=== PATIENT | female | born 1990 | race Caucasian/White ===

== ENCOUNTER 2023-05-24 06:39 | Observation (INO) | payer BC, SELFPAY ==
[2023-05-24] VITALS (22 sets, daily range): BP systolic 113–163; BP diastolic 63–116; PULSE 91–116; RESP 15–22; TEMP 35.9–37.7; O2SAT 94–100; BMI 32.8
--- NOTE | ~2023-05-24 | CT_ITS ---
EXAMINATION: CT abdomen pelvis w con INDICATION: Umbilical pain TECHNIQUE: Computed tomographic images of the abdomen and pelvis were obtained after the administrati on of 100 cc of Omnipaque 350 intravenous contrast. The dose-length product (DLP) was 726.36 mGy-cm. Automated exposure control and iterative reconstruction technique were employed. COMPARISON: None available FINDINGS: The lung bases are clear. The heart size is normal. The liver, spleen, pancreas, and adrena l glands are normal. There appear to be stones in the nondistended gallbladder. The kidneys are unrem arkable. No pathologically enlarged abdominal or pelvic lymph nodes are identified. No free intraperi toneal gas or evidence of bowel obstruction. The dilated appendix measures up to 10 mm. There is juan m atous stranding of the periappendiceal fat. No periappendiceal abscess or perforation are identified. There is moderate lumbar spondylosis at L5-S1. A tiny fat-containing umbilical hernia is noted. IMPRESSION: 1. Uncomplicated acute appendicitis. 2. Possible cholelithiasis. Reviewed, dictated and finalized at location A.
[2023-05-24 07:10] LABS: Add Urine Microscopic? NO; Appearance Urine Clear (Clear); Bilirubin Urine Negative (Negative); Blood Urine Negative (Negative); Color Urine Yellow (Yellow); Glucose Urine UA Negative (Negative); Ketones Urine Negative (Negative); Leukocyte Esterase Ur Negative LEU/UL (Negative); Nitrate Urine Negative (Negative); Protein Urine Negative (Negative); Specific Grav Ur 1.004 (1.001-1.035); Urobilinogen Urine 0.2 mg/dL (<2.0)
[2023-05-24 07:13] LABS: Basophils Absolute Auto 0.1 K/mm3 (0.0-0.1); Basophils Percent Auto 0.3 % (0.2-1.2); Eosinophils Percent Auto 0.1 % (0-4.4); Hematocrit 38.9 % (37.0-47.0); Hemoglobin 12.6 g/dL (12.0-15.0); Immature Granulocyte Absolute 0.07 K/mm3 (0.00-0.031); Immature Granulocyte Percent A 0.4 % (0-0.5); Lymphocytes Absolute Auto 2.08 K/mm3 (0.9-3.2); Lymphocytes Percent Auto 10.6 % (18.3-44.2); Mean Corpuscular HGB Conc 32.4 g/dl (32-36); Mean Corpuscular Hemoglobin 30.2 pg (26-34); Mean Corpuscular Volume 93.3 fl (80-100); Monocytes Absolute Auto 0.9 K/mm3 (0.1-0.6); Monocytes Percent Auto 4.7 % (2.6-8.5); Neutrophils Absolute Auto 16.5 K/mm3 (1.3-6.7); Neutrophils Percent Auto 83.9 % (45.5-73.1); Platelet Count Result 388 k/mm3 (150-375); Red Blood Count 4.17 M/mm3 (4.2-5.4); Red Cell Distribution Width 12.9 % (11.5-14.5); White Blood Count 19.6 K/mm3 (4.5-10.0)
[2023-05-24 07:18] LABS: Sodium 137 mmol/L (137-145)
[2023-05-24 07:24] LABS: Alanine Aminotransferase 59 U/L (6-35); Alkaline Phosphatase 114 U/L (38-126); Anion Gap 10 mmol/L (8-16); Aspartate Amino Transferase 39 U/L (14-36); Bilirubin,Total 0.6 mg/dL (0.2-1.3); Blood Urea Nitrogen 8 mg/dL (7-17); Calcium 9.7 mg/dL (8.4-10.2); Carbon Dioxide 24 mmol/L (22-30); Chloride 103 mmol/L (98-107); Estimated CRCL calculation 140 ml/min; Estimated Glomerular Filt Rate > 60; Glucose 124 mg/dL (65-110); Lipase 28 U/L (23-300)
--- NOTE | 2023-05-24 07:35 | ED.ABDPAIN ---
HPI - Abdominal Pain General Chief Complaint: Abdominal Pain Stated Complaint: abdominal pain Time Seen by Provider: 05/24/23 07:34 Source: patient Mode of arrival: ambulatory Limitations: no limitations History of Present Illness HPI narrative: 32 years old white female presented to the ED with the mid epigastric pain started 7 hours ago has been steady, dull aching, burning, she denies any fever chills nausea vomiting. No history of abdominal surgery, patient does not take medicine at home, does not smoke or drink or uses drugs, no history of acid reflux, last minutes were. 3 weeks ago. Patient denies any vaginal bleeding or discharge Related Data Allergies Allergy/AdvReac Type Severity Reaction Status Date / Time No Known Allergies Allergy Verified 05/24/23 07:51 Review of Systems Review of Systems: All systems reviewed & are unremarkable except as noted in HPI and below Exam Narrative: General appearance: Well-developed, well-nourished Skin: Normal color Head: Normocephalic, nontraumatic Eyes: Clear conjunctiva ENT: Oropharynx normal, ears normal, nose normal Neck: Supple, nontender Chest and respiratory: Airway patent, no respiratory distress, no accessory muscle use Heart: Regular rate/rhythm Abdomen: Soft, diffuse epigastric tenderness and right lower quadrant, no organomegaly, quiet bowel sounds Vascular: Normal peripheral pulses, normal capillary refill. Musculoskeletal: Normal range of motion, nontender back Neurologic: Alert and oriented ?3, ENFORCEMENT MANAGER is normal as tested, no gross motor deficit Course Reevaluation(s) Reevaluation #1: Almost pain-free after IV fluid, Dilaudid and Zofran. Date: 05/24/23 Time: 11:15 Consultations Consultation #1: chalo Date: 05/24/23 Time: 11:16 Vital Signs Vital signs: Vital Signs Temperature 36.6 C 05/24/23 06:41 Pulse Rate 116 H 05/24/23 06:41 Respiratory Rate 15 05/24/23 06:41 Blood Pressure 144/92 H 05/24/23 06:41 Pulse Oximetry 100 05/24/23 06:41 Oxygen Delivery Room Air 05/24/23 06:41 Temperature 36.6 C 05/24/23 06:41 Pulse Rate 105 H 05/24/23 10:21 Respiratory Rate 16 05/24/23 10:21 Blood Pressure 151/116 H 05/24/23 10:21 Pulse Oximetry 100 05/24/23 10:01 Oxygen Delivery Room Air 05/24/23 06:41 MDM - Abdominal Pain MDM Narrative Medical decision making narrative: Patient presents with abdominal pain physical examination showed mild to moderate tenderness right lower quadrant and epigastric area. Differential diagnosis includes GERD, pancreatitis, cholecystitis, appendicitis, diverticulitis, urinary tract infection, kidney stone. Work-up today includes CBC, CMP, urine analysis, CT scan of the abdomen and pelvis showed WBC of 19.6 with left shift, normal CMP, clean urine, CT scan of the abdomen pelvis with IV contrast showed uncomplicated acute appendicitis. In the ED patient received 1 L of normal saline, Dilaudid 0.5 mg IV, Zofran 4 mg IV, Zosyn IV. Patient to be admitted to the Dr. Barrios for possible surgery today Differential Diagnosis Differential diagnosis: Likely abdominal pain, acute appendicitis, constipation and diverticulitis Lab Data Attestation: I reviewed the patient's lab results. 05/24/23 06:54 05/24/23 06:54 Labs: Lab Results 05/24/23 05/24/23 Range/Units 06:54 07:00 WBC 19.6 H (4.5-10.0) K/mm3 RBC 4.17 L (4.2-5.4) M/mm3 Hgb 12.6 (12.0-15.0) g/dL Hct 38.9 (37.0-47.0) % MCV 93.3 (80-100) fl MCH 30.2 (26-34) pg MCHC 32.4 (32-36) g/dl RDW 12.9 (11.5-14.5) % Plt Count 388 H (150-375) k/mm3 MPV 9.0 (7.4-10.4) fl Immature Gran % (Auto) 0.4
[2023-05-24] MEDS: SODIUM CHLORIDE 0.9% IV 1,000 ML 999 ML IV CONT (07:53)
[2023-05-24] MEDS: ONDANSETRON INJ 4 MG/2 ML VIAL IV PUSH (07:53)
[2023-05-24] MEDS: PIPERACILLN/TAZ 3.375GM/NS50ML 3.375 GM/50 ML BAG IVPB ×2 (10:14→17:55)
[2023-05-24] MEDS: HYDROmorphone HCL INJ (*CRX) 1 MG/ML SYR 0.5 MG IV PUSH (10:14)
[2023-05-24] MEDS: LACTATED RINGERS 1,000 ML 250 ML IV CONT (11:24)
--- NOTE | 2023-05-24 12:38 | PM.IMHP ---
H&P: HPI History of Present Illness Date/Time: 05/24/23 12:38 Chief Complaint: Right lower quadrant pain Narrative: This is a 32-year-old woman who presented to the emergency department this morning with complaints of right lower quadrant pain that started last night. Pain initially was epigastric and periumbilical and started around 6:00 p.m. last night. It then migrated to around her umbilicus and slightly to the right. She has had worsening pain throughout the night and this morning therefore she presented to the ED. she denies any fevers or chills. She denies any nausea or vomiting. She is hungry. She has had minor episodes of abdominal pain at night time in the past, but nothing this severe. Review of Systems Review of Systems: All systems reviewed & are unremarkable except as noted in HPI and below Eyes: Eyes: Denies change in vision ENT: Denies hearing loss, Denies neck pain and Denies sore throat Cardiovascular: Cardiovascular: Denies chest pain and Denies dyspnea Respiratory: Respiratory: Denies cough, Denies dyspnea and Denies wheezing Gastrointestinal: Gastrointestinal: Reports as per HPI Genitourinary: Genitourinary: Denies hematuria and Denies dysuria Musculoskeletal: Musculoskeletal: Denies arthralgias, Denies joint swelling and Denies neck pain Allergic/Immunologic: Allergic/Immunologic: Denies wheezing PMFSH Past Medical History Medical History No significant medical problems Surgical History Surgical History No history of previous surgery Family History Family History (Updated 05/24/23 @ 15:36 by Ric Barrios DO) Other No pertinent family history Social History Social History Smoking status: Never smoker Alcohol intake: never Substance use: never Substance use type: does not use Lack of Transportation: No Lack of Food: Never True Current Housing: I Have Housing Concerned About Future Housing: No Difficulty Paying Gas/Electric Bills: No Difficulty Paying for Meds: No Currently Unemployed: No Education: Associate Degree Difficulty w/ Childcare or Family Care: No Spiritual care concerns: No Meds Home Medications and Allergies Home Medications Medication Instructions Recorded Confirmed Type acetaminophen 500 mg PO DAILY PRN Pain 05/24/23 05/24/23 History Allergies Allergy/AdvReac Type Severity Reaction Status Date / Time No Known Allergies Allergy Verified 05/24/23 07:51 Vital Signs Vital Signs - 24 hr 05/24/23 06:41 05/24/23 08:01 05/24/23 08:01 Temperature 36.6 C Pulse Rate 116 H 94 94 Respiratory Rate 15 20 19 Blood Pressure 144/92 H 136/91 H 136/91 H Pulse Oximetry 100 100 98 Oxygen Delivery Room Air 05/24/23 08:29 05/24/23 09:07 05/24/23 09:16 Temperature Pulse Rate 96 101 H 104 H Respiratory Rate 18 22 H Blood Pressure 139/92 H 152/94 H 163/102 H Pulse Oximetry 100 100 100 Oxygen Delivery 05/24/23 10:01 05/24/23 10:21 05/24/23 10:46 Temperature Pulse Rate 102 H 105 H 92 Respiratory Rate 20 16 17 Blood Pressure 150/101 H 151/116 H 151/93 H Pulse Oximetry 100 100 Oxygen Delivery 05/24/23 11:01 05/24/23 11:29 05/24/23 11:46 Temperature Pulse Rate 91 91 94 Respiratory Rate 18 21 H 18 Blood Pressure 143/93 H 138/90 137/97 H Pulse Oximetry 100 98 100 Oxygen Delivery Exam Const: General: alert; No acute distress Orientation/consciousness: patient oriented x3 Limitations: no limitations HENMT: Head: normocephalic and atraumatic Ears: hearing grossly normal bilaterally Face/Nose/Sinus: Normal external nose present and Normal nares present Mouth: Yes Normal oral and palatal mucosa present and Yes moist mucous membranes Eyes: General: appearance normal, both eyes and all related structures Co
--- NOTE | 2023-05-24 13:29 | WPDHPUPDATE1 ---
History and Physical Update Update Date/Time: 05/24/23 13:29 History and Physical has been reviewed, including an updated exam of the patient. There are NO changes in the patient's condition. Risks, benefits, and alternatives have been discussed and questions answered. Patient agrees to proceed with procedure.
[2023-05-24] MEDS: LACTATED RINGERS 1,000 ML 30 ML IV CONT ×2 (13:30→14:51)
--- NOTE | 2023-05-24 13:43 | WPDANESEPPF ---
Anes - Initial Pre Proc Eval Procedure: Operation Date: 05/24/23 17:15 Proposed Procedures p Laparoscopic Appendectomy - iRc Barrios DO Date/Time: 05/24/23 13:43 Surgeon: Ric Barrios DO Pre Op Diagnosis: Acute Appendicitis Patient Data Age: 32 Gender: F Height: 1.6 m Weight: 83.9 kg Last Vital Signs Temp 37.1 C 05/24/23 12:20 Pulse 108 H 05/24/23 12:20 Resp 18 05/24/23 12:20 BP 151/94 H 05/24/23 12:20 Pulse Ox 100 05/24/23 12:20 O2 Del Method Room Air 05/24/23 06:41 Allergies Allergy/AdvReac Type Severity Reaction Status Date / Time No Known Allergies Allergy Verified 05/24/23 07:51 Home Medications Medication Instructions Recorded Confirmed Type acetaminophen 500 mg PO DAILY PRN Pain 05/24/23 05/24/23 History Laboratory Tests 05/24/23 05/24/23 06:54 07:00 WBC 19.6 H K/mm3 (4.5-10.0) RBC 4.17 L M/mm3 (4.2-5.4) Hgb 12.6 g/dL (12.0-15.0) Hct 38.9 % (37.0-47.0) MCV 93.3 fl (80-100) MCH 30.2 pg (26-34) MCHC 32.4 g/dl (32-36) RDW 12.9 % (11.5-14.5) Plt Count 388 H k/mm3 (150-375) MPV 9.0 fl (7.4-10.4) Immature Gran % (Auto) 0.4 % (0-0.5) Neut % (Auto) 83.9 H % (45.5-73.1) Lymph % (Auto) 10.6 L % (18.3-44.2) [place] % (Auto) 4.7 % (2.6-8.5) Eos % (Auto) 0.1 % (0-4.4) Baso % (Auto) 0.3 % (0.2-1.2) Lymph # (Auto) 2.08 K/mm3 (0.9-3.2) [place] # (Auto) 0.9 H K/mm3 (0.1-0.6) Eos # (Auto) 0.0 K/mm3 (0-0.3) Baso # (Auto) 0.1 K/mm3 (0.0-0.1) Abs Immat Gran (auto) 0.07 H K/mm3 (0.00-0.031) Absolute Neuts (auto) 16.5 H K/mm3 (1.3-6.7) Absolute Nucleated RBC 0.0 K/mm3 (0.0-0.012) Nucleated RBC % 0.0 % (0.0-0.2) Sodium 137 mmol/L (137-145) Potassium 4.0 mmol/L (3.4-5.0) Chloride 103 mmol/L (98-107) Carbon Dioxide 24 mmol/L (22-30) Anion Gap 10 mmol/L (8-16) BUN 8 mg/dL (7-17) Creatinine 0.50 L mg/dL (0.7-1.0) Estim Creat Clear Calc 140 ml/min Estimated GFR > 60 (59 - ) Glucose 124 H mg/dL (65-110) Calcium 9.7 mg/dL (8.4-10.2) Total Bilirubin 0.6 mg/dL (0.2-1.3) AST 39 H U/L (14-36) ALT 59 H U/L (6-35) Alkaline Phosphatase 114 U/L (38-126) Total Protein 9.0 H g/dL (6.3-8.2) Albumin 5.0 g/dL (3.5-5.1) Lipase 28 U/L (23-300) Urine Color Yellow (Yellow) Urine Appearance Clear (Clear) Urine pH 6.0 (5.0-9.0) Ur Specific [place] 1.004 (1.001-1.035) Urine Protein Negative mg/dL (Negative) Urine Glucose (UA) Negative mg/dL (Negative) Urine Ketones Negative mg/dL (Negative) Ur Blood (Man) Negative (Negative) Urine Nitrate Negative (Negative) Urine Bilirubin Negative (Negative) Urine Urobilinogen 0.2 mg/dL (<2.0) Leukocyte Esterase Rfl Negative AGUSTIN/UL (Negative) Patient hx anesthesia problems: none Family hx anesthesia problems: none Results Review: All pre-operative results and documents have been reviewed as part of the pre-operative evaluation. FOR[facility]LY [facility] Past Medical History Medical History No significant medical problems Surgical History Surgical History No history of previous surgery Social History Social History Smoking status: Never smoker Alcohol intake: never Substance use: never Substance use type: does not use Lack of Transportation: No Lack of Food: Never True Current Housing: I Have Housing Concerned About Future Housing: No Difficulty Paying Gas/Electric Bills: No Difficulty Paying fo
[2023-05-24] MEDS: BUPIVACAINE/EPINEPHRINE 0.5% 30 ML VIAL INFILTRATE (13:59)
--- NOTE | 2023-05-24 15:37 | W.PM.PROC2 ---
Procedure Note - Detailed Date of Procedure 05/24/23 Pre-op Diagnosis Acute Appendicitis Post-op Diagnosis Same Procedure Performed Laparoscopic appendectomy Surgeon Ric Barrios DO Anesthesia General and Local (0.5% bupivicaine with epinephrine) Description of Procedure Procedure as well as risks, benefits, and alternatives were explained to the patient. The patient agreed to proceed. Written consent was obtained and placed in chart prior to procedure. The patient was brought back to surgical suite. She was placed supine on operating table. Time-out was done to confirm the patient and procedure. The patient was then intubated by the Anesthesia Department. Her abdomen was prepped and draped in sterile fashion using chlorhexidine prep. A 5 mm incision was made just to the left of the patient's umbilicus and a 5 mm Optiview trocar was advanced through the abdominal layers under direct visualization. Once inside the peritoneal cavity, carbon dioxide insufflation was used to create a pneumoperitoneum. The camera was inserted and the abdomen was inspected. No immediate abnormalities were identified. The patient was then placed in slight Trendelenburg position and rotated to the left. A 5 mm incision was made in the suprapubic region in midline and a 5 mm trocar was inserted under direct visualization. A 12 mm incision was made in the left lower quadrant and a 12 mm trocar was inserted under direct visualization. The right lower quadrant was carefully inspected. The cecum was identified and then this was traced back to the appendix. The appendix was identified and grasped at the mesoappendix and lifted anteriorly. Careful blunt dissection was carried out at the base of the appendix through the mesoappendix using a [place] grasper. An Endo-AURORA 45 mm blue load stapler was then advanced across the base of the appendix and clamped and fired. A white reload was then clamped across the mesoappendix and fired. This freed up our appendix completely. It was then placed in an EndoCatch bag and removed through the left lower quadrant port. The staple lines were then inspected. Hemostasis appeared adequate and the staple lines appeared secure. The area was then irrigated with sterile saline. The pelvis was then carefully inspected and irrigated with sterile saline as well and the remainder of the abdomen was carefully inspected. The patient was then flattened out in bed. One final inspection was made around the abdominal cavity and no other abnormalities were seen. The left lower quadrant port was removed and a Hakeem-Shantelle cone was used to approximate the fascia with an 0 Vicryl simple interrupted suture. The remaining ports were then removed under direct visualization. The camera was removed and the pneumoperitoneum was released. 0.5% bupivacaine with epinephrine was infiltrated locally around each of the incisions. The skin of the incisions was then approximated using 4-0 Monocryl subcuticular suture and Exofin glue was applied on top. The patient was then awakened from anesthesia, extubated, and transferred to Recovery. Estimated Blood Loss 10 Urine Output 300 Pathology Yes (Appendix) Complications No immediate complications Condition Stable Disposition Floor [facility] Billing Surgery - Charge Forward: Surgery Billing
--- NOTE | 2023-05-24 15:57 | PM.DS ---
DS: Admitting Diagnosis Discharge Date 05/24/2023 Admitting Diagnosis Acute appendicitis DS: Discharge Diagnosis Discharge Diagnosis (1) Acute appendicitis: Qualifiers: Acute appendicitis type: with localized peritonitis Appendicitis abscess presence: without abscess Appendicitis gangrene presence: without gangrene Appendicitis perforation presence: without perforation Qualified Code(s): K35.30 - Acute appendicitis with localized peritonitis, without perforation or gangrene Code(s): K35.80 - Unspecified acute appendicitis Status: Acute DS: Summary Hospital Course Reason for hospitalization: Acute appendicitis Hospital Course: This is 32-year-old woman who presented to the emergency department this morning with right lower quadrant pain. She was initially having some periumbilical and epigastric pain last night around 6:00 p.m. and then this continued throughout the night. Her pain then localized to the right lower quadrant. She was found to have an elevated white blood count at 19.[address] showed evidence of acute appendicitis. She was started on Zosyn and placed in the hospital under observation. Discussions were made with the patient about treatment options and decision was made to proceed with laparoscopic appendectomy. Surgery was uncomplicated and she was returned to the surgical floor postoperatively. Her diet and activity were advanced as tolerated. She was discharged home once her pain was controlled, vitals remained stable, she was tolerating a diet, and she was ambulating in the halls. Status at Discharge Functional status at discharge: independent ambulation Overall status at discharge: patient is progressing back to baseline Time Spent with Patient Time attestation: Total time spent providing and/or coordinating discharge services: Time spent: Less than 30 minutes Exam Resp: Effort & Inspection: normal respiratory effort Auscultation: clear to auscultation bilaterally Cardio: Rate: regular rate Rhythm: regular rhythm Heart sounds: S1 normal heart sound present and S2 normal heart sound present GI: Inspection: non-distended and incision (Intact with glue) DS: Data Data Completed and Pending Pending studies at discharge: Pending at discharge 05/24/23 14:24 Surgical [PTH] Routine Labs on day of discharge: Labs from last 24 hours 05/24/23 05/24/23 07:00 06:54 WBC 19.6 H RBC 4.17 L Hgb 12.6 Hct 38.9 MCV 93.3 MCH 30.2 MCHC 32.4 RDW 12.9 Plt Count 388 H MPV 9.0 Immature Gran % (Auto) 0.4 Neut % (Auto) 83.9 H Lymph % (Auto) 10.6 L [place] % (Auto) 4.7 Eos % (Auto) 0.1 Baso % (Auto) 0.3 Lymph # (Auto) 2.08 [place] # (Auto) 0.9 H Eos # (Auto) 0.0 Baso # (Auto) 0.1 Abs Immat Gran (auto) 0.07 H Absolute Neuts (auto) 16.5 H Absolute Nucleated RBC 0.0 Nucleated RBC % 0.0 Sodium 137 Potassium 4.0 Chloride 103 Carbon Dioxide 24 Anion Gap 10 BUN 8 Creatinine 0.50 L Estim Creat Clear Calc 140 Estimated GFR > 60 Glucose 124 H Calcium 9.7 Total Bilirubin 0.6 AST 39 H ALT 59 H Alkaline Phosphatase 114 Total Protein 9.0 H Albumin 5.0 Lipase 28 Urine Color Yellow Urine Appearance Clear Urine pH 6.0 Ur Specific [place] 1.004 Urine Protein Negative Urine Glucose (UA) Negative Urine Ketones Negative Ur Blood (Man) Negative Urine Nitrate Negative Urine Bilirubin Negative Urine Urobilinogen 0.2 Leukocyte Esterase Rfl Negative Imaging Radiologist's impression: ITS Impressions Abdomen/Pelvis CT 05/24/23 08:33 IMPRESSION: 1. Uncomplicated acute appendicitis. 2. Possible cholelithiasis. Discharge Plan Discharge Attending physician on discharge: Ric Barrios Consulting providers: Andres Bolaños; Boaz Albright Discharging Clinician: Ric Barrios. Patient Disposition: Home, Self-Care Activity: other - see disc
[2023-05-24] MEDS: LACTATED RINGERS 1,000 ML 100 ML IV CONT (16:10)
== END 2023-05-24 18:55 | disposition home or self-care (01) ==
LOC: ANHED 11:02 → ANH2MED 11:40
PROVIDERS: Emergency Medicine; Admitting Provider Surgery; Emergency Provider Emergency Medicine; PCP Family Medicine; Visit Provider Surgery
PROC: 0DTJ4ZZ Resection of Appendix, Percutaneous Endoscopic Approach (ICD-10-PCS; CPT 44970; principal; 2023-05-24 17:15)
DX: K35.80 Unspecified acute appendicitis (principal); E66.9 Obesity, unspecified; Z68.32 Body mass index [BMI] 32.0-32.9, adult; R00.1 Bradycardia, unspecified; D72.829 Elevated white blood cell count, unspecified; Z79.1 Long term (current) use of non-steroidal anti-inflammatories (NSAID)
CPT/HCPCS: 44970; 36415; 74177; 80053; 81003; 81025; 83690; 85025; 88304; 96361; 96365; 96375; 99285; G0378; J0330; J1100; J1170; J2250; J2405; J2543; J2704; J3010; J7030; J7120; Q9967